=== PATIENT | male | born 1980 | race Caucasian/White ===

== ENCOUNTER 2020-06-05 06:27 | Day surgery (SDC) | payer BC, MEDICAID ==
[2020-06-05] MEDS ORDERED: Sodium Chloride 0.9% 1,000 ML IV SCH (07:30)
[2020-06-05] MEDS ORDERED: fentaNYL 100 MCG/2 ML SDV ONE (07:37)
[2020-06-05] MEDS ORDERED: Midazolam 1 MG/ML 2 ML SDV ONE (07:37)
[2020-06-05] MEDS ORDERED: Propofol 200 MG/20 ML SDV ONE (07:37)
--- NOTE | 2020-06-05 10:10 | OR ---
DATE OF PROCEDURE: 06/05/2020 SURGEON: Isidro Lang MD PROCEDURE: Colonoscopy. FINDINGS: Normal colonoscopy. PREOPERATIVE DIAGNOSIS: Gastrointestinal bleed. POSTOPERATIVE DIAGNOSIS: Gastrointestinal bleed. RISKS: Risks, benefits, alternatives, and limitations including, but not limited to infection, bleeding, and perforation were explained to the patient who wished to proceed. PROCEDURE IN DETAIL: The patient was placed in left lateral decubitus position. Digital rectal exam was performed without abnormality. Scope was introduced atraumatically to the ileocecal valve. Scope was brought back to the ascending, transverse, descending colon, and retroflexed. No evidence of old or new blood. No masses. No polyps. No diverticulosis. No hemorrhoids on retroflexion. No fistula. The patient tolerated the procedure well. Greater than 10 minutes was spent removing the scope. Isidro Lang MD /[id number] MTDD
== END 2020-06-05 09:23 | disposition home or self-care (01) ==
LOC: JP.SDS 06:27
PROVIDERS: ATTEND Surgery
DX: K92.2 Gastrointestinal hemorrhage, unspecified (principal); Z88.0 Allergy status to penicillin
CPT/HCPCS: 45378; J2250; J2704; J3010; J7030

== ENCOUNTER 2020-08-18 21:37 | Emergency (ER) | payer BC ==
--- NOTE | 2020-08-18 22:17 | EDM.PDOC ---
ED HPI GENERAL MEDICAL PROBLEM - General Chief Complaint: Upper Extremity Injury/Pain Stated Complaint: FELL ON ICE Time Seen by Provider: 08/18/20 22:11 Source of Information: Reports: Patient History Limitations: Reports: No Limitations - History of Present Illness INITIAL COMMENTS - FREE TEXT/NARRATIVE: Lyle is a 40-year-old male presenting to the ED for evaluation of injuries related to falling on the ice tonight. The injuries occurred about 45 minutes prior to arrival when the patient was walking out of a building and slipped falling on his right side. Patient is complaining of right posterior chest pain, right scapula pain, and swelling and discoloration with numbness of the right upper extremity. He still able to move the shoulder, elbow, and wrist without difficulty. Has equal hand grasp. He does state that he has some paresthesias in the right hand. There was some cyanosis but now it actually looks to be a little bit more erythematous and slightly swollen. He denies any shortness of breath. He did not hit his head and denies any headache. He is having some back pain in the mid thorax but does have unrestricted movement of his back. He has no other complaints. scapular Pain Score (Numeric/FACES): 5 - Related Data Allergies Allergy/AdvReac Type Severity Reaction Status Date / Time Penicillins Allergy Other Verified 08/18/20 22:15 Home Meds: Home Meds NK [No Known Home Meds] 08/18/20 [History] Past Medical History HEENT History: Reports: None Cardiovascular History: Reports: None Respiratory History: Reports: None Gastrointestinal History: Reports: Other (See Below) Other Gastrointestinal History: blood in stool Genitourinary History: Reports: None Musculoskeletal History: Reports: None Neurological History: Reports: Seizure Other Neuro History: as a child. no recent history Psychiatric History: Reports: None Hematologic History: Reports: None Immunologic History: Reports: None Oncologic (Cancer) History: Reports: None Dermatologic History: Reports: None - Infectious Disease History Infectious Disease History: Reports: None - Past Surgical History Head Surgeries/Procedures: Reports: None HEENT Surgical History: Reports: None GI Surgical History: Reports: Appendectomy Endocrine Surgical History: Reports: None Neurological Surgical History: Reports: None Oncologic Surgical History: Reports: None Social & Family History - Caffeine Use Caffeine Use: Reports: Coffee Review of Systems - Review of Systems Review Of Systems: See Below Constitutional: Reports: No Symptoms Eyes: Reports: No Symptoms Ears: Reports: No Symptoms Nose: Reports: No Symptoms Mouth/Throat: Reports: No Symptoms Respiratory: Reports: No Symptoms Cardiovascular: Reports: Chest Pain (Right posterior chest especially around the area of the scapula.) GI/Abdominal: Reports: No Symptoms Genitourinary: Reports: No Symptoms Musculoskeletal: Reports: Back Pain (Right mid thorax and mid back.) Skin: Reports: Erythema (The right hand initially was slightly cyanotic but now seems to be erythematous.) Neurological: Reports: Paresthesia (Right upper extremity especially the hand.) Psychiatric: Reports: No Symptoms ED EXAM, GENERAL - Physical Exam Exam: See Below Exam Limited By: No Limitations General Appearance: Alert, Mild Distress Eye Exam: Bilateral Eye: EOMI, PERRL Head: Atraumatic, Normocephalic Neck: Normal Inspection, Supple, Non-Tender, Full Range of Motion. No: Lymphadenopathy (R), Lymphadenopathy (L) Respiratory/Chest: No Respiratory Distress, Lungs Clear, Normal Breath Sounds, Other (Tenderness to palpation over the right scapula and right posterior chest wall. There is no crepitus or step-off noted. There is no ecchymosis noted.) Cardiovascular: Normal Peripheral Pulses, Regular Rate, Rhythm, No Murmur Peripheral Pulses: 2+: Radial (L), Radial (R) Back Exam: Normal Inspection, Full Range of Motion. No: Decreased Range of Motion, Muscle Spasm, Paraspinal Tenderness, Vertebral Tenderness Extremities: Normal Inspection, Normal Range of Motion, Non-Tender, Other (Mild swelling and erythema of the right hand compared to the left. ) Neurological: Alert, Oriented, CN II-XII Intact, Normal Cognition, Normal Gait, No Motor/Sensory Deficits Psychiatric: Normal Affect, Normal Mood Skin Exam: Warm, Dry, Intact, Normal Color, No Rash Course - Vital Signs Last Recorded V/S: Last Vital Signs Temp 36.2 C 08/18/20 22:09 Pulse 77 08/18/20 22:09 Resp 16 08/18/20 22:09 BP 120/86 08/18/20 22:09 Pulse Ox 96 08/18/20 22:09 - Orders/Labs/Meds Orders: Active Orders 24 hr Category Date Time Status Chest wo Cont [CT] Stat Exams 08/18/20 22:11 Taken - Re-Assessments/Exams Free Text/Narrative Re-Assessment/Exam: 08/18/20 23:[address] of the chest without contrast showing normal thoracic anatomy without evidence for scapula or rib fractures. Departure - Departure Time of Disposition: 23:16 Disposition: Home, Self-Care 01 Condition: Good Clinical Impression: Fall due to ice or snow Qualifiers: Encounter type: initial encounter Qualified Code(s): W00.9XXA - Unspecified fall due to ice and snow, initial encounter Contusion of right chest wall Qualifiers: Encounter type: initial encounter Qualified Code(s): S20.211A - Contusion of right front wall of thorax, initial encounter - Discharge Information *PRESCRIPTION DRUG MONITORING PROGRAM REVIEWED*: Not Applicable *COPY OF PRESCRIPTION DRUG MONITORING REPORT IN PATIENT ANDRES: Not Applicable Instructions: Blunt Chest Trauma, Contusion, [id number] Referrals: PCP,None [Primary Care Provider] - Forms: ED Department Discharge Care Plan Goals: You may use Tylenol, Aleve, or ibuprofen for pain control. You may want apply ice to the area to reduce pain and swelling as well. There will be some development of muscle spasm as a result of the injury that may worsen over the next 24 to 48 hours. I would also expect that the tingling in your hand should resolve in the next 12 hours. Please return to the ED for reevaluation should you develop any significant shortness of breath, numbness or tingling that is worsening, headache, or recurrence of cyanosis of the extremity. Sepsis Event Note (ED) - Evaluation Sepsis Screening Result: No Definite Risk - Focused Exam Vital Signs: Vital Signs Temp Pulse Resp BP Pulse Ox 08/18/20 22:09 36.2 C 77 16 120/86 96 - Problem List & Annotations (1) Contusion of right chest wall SNOMED Code(s): 35102139591695047 Code(s): S20.211A - CONTUSION OF RIGHT FRONT WALL OF THORAX, INITIAL ENCOUNTER Status: Acute Priority: Medium Current Visit: Yes Qualifiers: Encounter type: initial encounter Qualified Code(s): S20.211A - Contusion of right front wall of thorax, initial encounter (2) Fall due to ice or snow SNOMED Code(s): 432370790 Code(s): W00.9XXA - UNSPECIFIED FALL DUE TO ICE AND SNOW, INITIAL ENCOUNTER Status: Acute Priority: Medium Current Visit: Yes Qualifiers: Encounter type: initial encounter Qualified Code(s): W00.9XXA - Unspecified fall due to ice and snow, initial encounter - Problem List Review Problem List Initiated/Reviewed/Updated: Yes - My Orders Last 24 Hours: My Active Orders 08/18/20 22:11 Chest wo Cont [CT] Stat - Assessment/Plan Last 24 Hours: My Active Orders 08/18/20 22:11 Chest wo Cont [CT] Stat
[2020-08-18] MEDS ORDERED: Acetaminophen 500 MG Tab PO ONE (23:11)
--- NOTE | 2020-08-18 23:12 | CRLCT ---
INDICATION: Fall on ice, right posterior chest pain and scapular pain, discolored right hand TECHNIQUE: CT chest without contrast. COMPARISON: January 25, 2015 FINDINGS: Cardiovascular structures: Heart size is normal. Thoracic aorta and main pulmonary artery are normal in caliber. Mediastinum and cathie: No sign of mass or adenopathy. Lungs: Clear. Pleura and pericardium: No effusions. Chest wall and axilla: No mass or adenopathy. Upper abdomen: Unremarkable. Bones: No significant findings. IMPRESSION: Unremarkable unenhanced chest CT. No rib or scapular fracture identified. Please note that all CT scans at this facility use dose modulation, iterative reconstruction, and/or weight-based dosing when appropriate to reduce radiation dose to as low as reasonably achievable. Dictated by Mi Scherer MD @ Aug 18 2020 10:59PM Signed by Dr. Mi Scherer @ Aug 18 2020 11:11PM
[2020-08-18] MEDS ORDERED: Acetaminophen 500 MG Tab ONE (23:17)
== END 2020-08-18 23:22 | disposition home or self-care (01) ==
LOC: JP.ED 21:37
DX: S20.211A Contusion of right front wall of thorax, initial encounter (principal); Z88.0 Allergy status to penicillin; W00.9XXA Unspecified fall due to ice and snow, initial encounter
CPT/HCPCS: 71250; 99283; A9270; 99282